=== PATIENT | male | born 2000 | race Caucasian/White ===

== ENCOUNTER 2025-01-24 15:46 | Emergency (ER) | payer BC ==
[2025-01-24] MEDS ORDERED: Lidocaine 1% (PF) 30 ML VIAL ONE (16:32)
== END 2025-01-24 17:17 | disposition home or self-care (01) ==
LOC: NAV ERS 15:46
DX: S91.311A Laceration without foreign body, right foot, initial encounter (principal); F17.200 Nicotine dependence, unspecified, uncomplicated; W25.XXXA Contact with sharp glass, initial encounter
CPT/HCPCS: 12001; 99282